=== PATIENT | male | born 1945 | race Caucasian/White ===

== ENCOUNTER 2017-03-15 12:30 | Inpatient (IN) ==
[2017-03-15] MEDS ORDERED: ENOXAPARIN 100 MG/ML SYRINGE SUBCUT ONE (12:59)
[2017-03-15] MEDS ORDERED: NITROGLYCERIN SL 0.4 MG TABLET SL ONE (13:00)
[2017-03-15] MEDS ORDERED: ASPIRIN 325 MG TABLET PO STA (13:00)
[2017-03-15] MEDS ORDERED: NITROGLYCERIN SL 0.4 MG TABLET SL PRN (13:00)
[2017-03-15] MEDS ORDERED: ASPIRIN 325 MG TABLET ONE (13:00)
[2017-03-15] MEDS ORDERED: ENOXAPARIN 100 MG/ML SYRINGE SUBCUT STA (13:00)
--- NOTE | 2017-03-15 13:00 | EKG Report ---
Stationary ECG Study [facility] ER Test Date: 03/15/2017 12:47:32 PM Pat Name: ADDISON DEL ANGEL Department: Room: Gender: M Polygraph Examiner: : 1945 Requested by: Lio Woods Order Number: [id number] Reading MD: BRITT COLEMAN Intervals [place] Rate: 98 P: 999 [place]: 158 QRS: -85 QRSD: 148 T: 69 QT: 372 QTc: 427 Interpretive Statements ELECTRONIC VENTRICULAR PACEMAKER NO FURTHER INTERPRETATION POSSIBLE NORMAL SINUS RHYTHM Electronically Signed On 03-15-17 18:00:58 CDT by BRITT COLEMAN [email or web address]
--- NOTE | 2017-03-15 13:43 | XRay Report ---
XR chest 1V portable Indication: Cough Comparison: 18 January 2016 Findings: The heart and mediastinum are stable in size and configuration. Pacemaker device is unchanged in position. The pulmonary vascularity is slightly increased with bilateral increased interstitial lung density. No other lung infiltrates, effusions, pneumothorax or other abnormality is demonstrated. Impression: Findings suggest mild cardiac decompensation. PROCEDURE INTERPRETED AT [facility] DEPARTMENT OF RADIOLOGY Final Report Signed by: Dr. Colin Wiseman
[2017-03-15 13:58] LABS: Hematocrit 21.7 VOL% (42.0-52.0); Mean Corpuscular HGB Conc 25.8 GM/DL (32-36); Mean Corpuscular Hemoglobin 17 PG (27-34); Mean Corpuscular Volume 64.8 FL (87-102); Mean Platelet Volume 11.7 FL (9.6-12.0); Platelet Count 250 T/CUMM (130-400); Red Blood Count 3.35 MC/CUMM (3.8-5.5); Red Cell Distribution Width 19.9 % (9.3-17.3); White Blood Count 7.7 T/CUMM (4-12)
[2017-03-15 13:59] LABS: Hemoglobin 5.6 GM/DL (14.0-18.0)
[2017-03-15 14:11] LABS: Alanine Aminotransferase 13 U/L (16-61); Albumin 3.6 G/DL (3.4-5.0); Alkaline Phosphatase 42 U/L (45-117); Aspartate Amino Transferase 11 U/L (0-37); Blood Urea Nitrogen 18 MG/DL (7-18); Calcium 8.5 MG/DL (8.5-10.1); Glucose 168 MG/DL (74-106); Magnesium 2.3 MG/DL (1.8-2.4); Osmolality,Calculated 284.4 MOS/KG (273-304); Potassium 4.3 MMOL/L (3.5-5.1); Sodium 140 MMOL/L (136-145); Total Protein 7.1 G/DL (6.4-8.3); Troponin I Only < 0.015 NG/ML (0.00-0.045)
[2017-03-15] MEDS ORDERED: SODIUM CHLORIDE 0.9% 250 ML IV PRN (14:21)
--- NOTE | 2017-03-15 14:28 | Emergency Department Note ---
Harvey Schwartz Brittany, am scribing for, and in the presence of, Lio Stafford MD 13:00. Rivera Schwartz Phillip K, MD, personally performed the services described in this documentation, ascribed by Cristal Gabriel in my presence, and it is both accurate and complete 428 . Arrival - Arrival Chief Complaint: Chest Pain Stated Complaint: chest pain,sent by clinic ED Nursing Triage Note: C/o midsternal chest pain radiating to left arm-onset 3 weeks ago. +SOB. Denies N/V. Patient was sent from [facility] for further evaluation. Mode of Arrival: Ambulatory Limitations: No Limitations Source: Patient, RN Notes Reviewed - History of Present Illness HPI Narrative: Patient is a 71 y/o white male presenting to the ED for further evaluation of chest pain. Patient reports that for the last 3-4 weeks he has been having bouts of mid-sternal chest pain that has worsened today. He describes this pain as a sharp, heaviness that radiates down the left arm that is worsened upon exertion. Patient notes having some associated shortness of breath and "clamminess," but denies having any nausea, vomiting, diaphoresis, neck pain, or back pain with this. He has also had a productive cough, yellow in color. Patient states that as of now pain has alleviated itself somewhat, but is still persistent. He is a patient of Dr. Spicer, Cardiology. Patient reports last Cardiac Catheterization was in the last 5 years and had stent placement with this. He is accompanied by his sister who reports that their both of their parents had a history of heart disease. Mother notes that in the past few weeks patient has seemed to have pallor. Patient reports that he does take an Aspirin/ day and other medications, but has not taken any of his medications today. He has no other complaint/pain in the ED at this time. Onset (ago): week(s) (3 weeks, worsening today) Consistency: constant Severity: moderate Severity scale (1-10): 6 Quality: sharp, other (heaviness) Allergies/Adverse Reactions: Allergies Allergy/AdvReac Type Severity Reaction Status Date / Time codeine Allergy Intermediate Nausea Verified 08/03/16 08:57 Home Medications: Home Medications Medication Instructions Recorded Confirmed Type Carvedilol [Coreg] 6.25 mg PO BID 01/20/16 03/15/17 History Lisinopril 20 mg PO DAILY 01/20/16 03/15/17 History Simvastatin 40.5 mg PO BEDTIME 01/20/16 03/15/17 History Aspirin [Aspirin EC] 81 mg PO DAILY 03/15/17 03/15/17 History Review of System - Review of System 12 point system: reviewed and no additional remarkable complaints except as stated - Review of System Constitutional: Absent: chills, diaphoresis, fever Eyes: Absent: vision change Head/Ears/Nose/Throat: Absent: nasal drainage, sore throat Respiratory: Present: respiratory distress Cardiovascular: Present: chest pain Gastrointestinal: Absent: abdominal pain, nausea, vomiting, diarrhea, constipation Genitourinary male: Absent: urgency, dysuria, frequency Musculoskeletal: Absent: arm pain, back pain, leg pain, neck pain Skin: Absent: rash Neurological: Absent: headache Psychiatric: Absent: anxiety, depression Hematological/Lymphatic: Absent: easy bleeding, easy bruising Medical,Surgical,& Family Hx - Medical History Cardio: History of: Hypertension, CT, Pacemaker, Cardiovascular Problems (DR SPICER) Neurology: History of: Seizures HEENT: History of: Eye Problem (GLASSES), Dental Problems (FULL SET) Rheumatology: History of;: Rheumatoid Arthritis Renal: History of: Renal (Kidney) Cancer Gastrointestinal: History of: GERD Musculoskeletal: 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) Other: History of: Cancer (RIGHT KIDNEY, SKIN CANCER) - Surgical History Cardiac Surgeries: Sugical HX of: Cardiac Catheterization (stent) - Social History Smoking Status: Former smoker Frequency of Alcohol Use: None Type of Drug Use: None Exam Vital Signs: Vital Signs Temperature 98.2 F 03/15/17 12:43 Pulse Rate 112 H 03/15/17 12:43 Respiratory Rate 22 03/15/17 12:43 Blood Pressure 136/61 03/15/17 12:43 O2 Sat by Pulse Oximetry 96 03/15/17 12:43 - General General appearance: alert, in no apparent distress - Head Head exam: Present: atraumatic, normocephalic, normal inspection - Eye Eye exam: Present: PERRL, EOMI. Absent: normal appearance (pale conjunctiva) - ENT ENT exam: Present: mucous membranes moist. Absent: normal oropharynx (pale mm) - Neck Neck exam: Present: normal inspection, full ROM, trachea midline - Chest Chest inspection: Present: symmetric chest wall rise, tenderness (anterior chest wall pain to palpation) - Respiratory Respiratory exam: Present: normal lung sounds bilaterally. Absent: rales, rhonchi, wheezes - Cardiovascular Cardiovascular exam: Present: normal rhythm, tachycardia, normal heart sounds. Absent: regular rate, murmur, rubs, gallop - Abdominal Exam Abdominal exam: Present: soft, tenderness (tender to palpation in the epigastric area), normal bowel sounds. Absent: distention - Rectal Exam Rectal exam: Present: heme (+) stool (Brown stool that is slightly heme positive.) - Extremities Exam Extremities exam: Present: full ROM, pedal edema (+1/+2 edema to the bilateral lower extremities) - Back Exam Back exam: Present: normal inspection - Neurological Exam Neurological exam: Present: alert, oriented X3, CN II-XII intact. Absent: motor sensory deficit - Psychiatric Psychiatric exam: Present: normal affect - Skin Skin exam: Present: warm, dry, intact, pallor. Absent: normal color Course Course Narrative: Patient admitted to the hospitalist for blood transfusion and cardiac evaluation. Results - Labs CBC & BMP: 03/15/17 13:27 03/15/17 13:27 Lab Results: I have reviewed the patients labs Labs: Laboratory Tests 03/15/17 03/15/17 13:27 13:27 WBC 7.7 RBC 3.35 L Hgb 5.6 L* Hct 21.7 L MCV 64.8 L MCH 17 L MCHC 25.8 L RDW 19.9 H Plt Count 250 MPV 11.7 Nucleated RBC % 0.0 Nucleated RBCs # 0.00 Sodium 140 Potassium 4.3 Chloride 103 Carbon Dioxide 28 Anion Gap 13.3 BUN 18 Creatinine 1.20 GFR Calculation 72 BUN/Creatinine Ratio 15.00 Glucose 168 H Calculated Osmolality 284.4 Calcium 8.5 Magnesium 2.3 Total Bilirubin 0.40 AST 11 ALT 13 L Alkaline Phosphatase 42 L Troponin I < 0.015 Total Protein 7.1 Albumin 3.6 Globulin 3.5 Albumin/Globulin Ratio 1.0 L Lipase 211.0 - EKG EKG results: interpreted by RENEE (pacemaker rhythm) - Diagnostic Findings Procedure: Chest x-ray: report reviewed by me (Findings suggest mild cardiac decompensation.) Disposition Clinical Impression: Chest pain, Unstable angina pectoris, Anemia, Heme positive stool Case discussed with: patient Disposition: Still a Patient Condition: Guarded
[2017-03-15] MEDS ORDERED: ONDANSETRON 4 MG/2 ML VIAL IV PRN (14:52)
[2017-03-15] MEDS ORDERED: DOCUSATE SODIUM 100 MG CAPSULE PO PRN (14:52)
--- NOTE | 2017-03-15 15:02 | Hospitalist History & Physical ---
<Zoya Bullokc - Last Filed: 03/15/17 15:44> Assessment and Plan (1) Chest pain Status: Acute Assessment and plan: Admit to telemetry. Cardiac monitoring. Serial troponins. Repeat EKGs. TSH ordered. BMP/CBC ordered. Prn nitro. Consult cardiology. Current Visit: Yes (2) Anemia Status: Acute Assessment and plan: Monitored bed for patient. Anemia profile ordered. Blood transfusion ordered. Labs ordered for am. Current Visit: Yes (3) Dyspnea Status: Acute Assessment and plan: Supplemental O2 ordered. Current Visit: Yes (4) Occult blood in stools Status: Acute Assessment and plan: H&H ordered. Consult GI. Current Visit: Yes (5) HTN (hypertension) Status: Chronic Assessment and plan: Pt. stable at present. Restart home medications. Current Visit: No History of Present Illness Chief complaint: chest pain History of present illness: Mr. Henson is a 71 year old white male patient that presented to the ED today with complaints of shortness of breath and chest pain. Pt. states that the chest pain and shortness of breath has been going on for at least a month but has progressively worsened. Pt. describes the pain as alternating from sharp to dull. He says its radiates down his arm. Pt. also reports that the shortness of breath happens in conjunction with the pain as well as with exertion. He stated just recently that he also had a dizzy spell where he "blacked out" and almost fell. Currently, pt denies any chest pain and explains that it is intermittent. He reports a productive cough with yellow sputum. Pt. has a past medical history of OH with stents, pacemaker, former smoker, kidney cancer, and hernia. He states that he had a cath done by Dr. Spicer "a little bit ago" and received the stents as a result. While in ED, patient was discovered to be slightly hem positive and anemic with a H&H of 04/21. Pt initially denied blood in stool but recanted and stated he noted blood 2 weeks ago but thought it was his hemorrhoids. Pt denies any nausea, vomiting, fever, chills, and abdominal pain. The pt. will be admitted to the hospitalist program. Home Medications Medication Instructions Recorded Confirmed Type Carvedilol [Coreg] 6.25 mg PO BID 01/20/16 03/15/17 History Lisinopril 20 mg PO DAILY 01/20/16 03/15/17 History Simvastatin 40.5 mg PO BEDTIME 01/20/16 03/15/17 History Aspirin [Aspirin EC] 81 mg PO DAILY 03/15/17 03/15/17 History Allergies Allergy/AdvReac Type Severity Reaction Status Date / Time codeine Allergy Intermediate Nausea Verified 08/03/16 08:57 Medical,Surgical,& Family Hx - Medical History Cardio: History of: Hypertension, OH, Pacemaker, Cardiovascular Problems (DR SPICER) Neurology: History of: Seizures HEENT: History of: Eye Problem (GLASSES), Dental Problems (FULL SET) Rheumatology: History of;: Rheumatoid Arthritis Renal: History of: Renal (Kidney) Cancer Gastrointestinal: History of: GERD Musculoskeletal: 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 Absent: headache(s) - EENT Eyes: Present: loss of vision Ears: Absent: decreased hearing Nose, mouth and throat: Absent: headache(s), sore throat - Cardiovascular Cardiovascular: Present: chest pain at rest, dyspnea - Respiratory Respiratory: Present: cough (productive) - Gastrointestinal Gastrointestinal: Absent: abdominal pain, nausea, vomiting - Genitourinary Genitourinary: Absent: difficulty urinating - Neurological Neurological: Present: paresthesias (intermittment bilateral hands). Absent: confusion - Psychiatric Psychiatric: Present: anxiety (with difficulty breathing) Exam - Constitutional Vitals: Period Temp Pulse Resp BP Sys/De Paz Pulse Ox Last 24 Hr 98.2 F 112 22 136/61 96 General appearance: no acute distress, over weight - Head Head exam: Present: normal inspection, normocephalic - Eye Eye exam: Present: EOMI. Absent: scleral icterus Pupils: Present: EUGENIA - Neck Neck exam: Present: normal inspection - Respiratory Respiratory exam: Present: clear to auscultation bilaterally. Absent: wheezes - Cardiovascular Cardiovascular exam: Present: regular rate and rhythm, other (patient has pacemaker) - GI/Abdominal GI/Abdominal exam: Present: normal bowel sounds, soft, other (pt has hernia). Absent: tenderness - Extremities Exam Extremities exam: Present: normal capillary refill, full ROM, edema (trace in le ) - Neurological Exam Neurological exam: Present: alert, oriented X3 - Psychiatric Psychiatric exam: Present: normal affect, normal mood, anxious - Skin Skin exam: Present: normal color, warm, dry Results - Labs CBC & BMP: 03/15/17 13:27 03/15/17 13:27 Lab Results: I have reviewed the past 24 hour labs <Radha Potter - Last Filed: 03/15/17 18:11> History of Present Illness History of present illness: Mr. Henson is a 71 year old male with a history of COPD, coronary artery disease status post stents and pacemaker placement who presented to the hospital with a chief complaint of shortness of breath and chest pain. According to the patient he is now noticed some intermittent chest tightness that lasts 25-45 minutes and can occur while he is at risk. He reports that it is associated with shortness of breath and nausea but denies any vomiting. He denies any diaphoresis. He does report lightheadedness and dizziness and he has noted progressive weakness over the last couple of weeks. He reports that the chest pain is seems to get worse when he takes a deep breath and is not associated with eating and is not positional. He reports that the pain is in the middle of his chest and it is mild to moderate in nature and radiates down his left arm. Patient reports that he has noted blood in his stools recently but thought this was related to his hemorrhoids. He does report some recent palpitations associated with lightheadedness and dizziness. He went to his primary care provider's office today for his 6 month checkup and according to his daughter looked pale so an EKG was done and a chest x-ray was obtained. He was sent to the emergency department for further evaluation and treatment. In the emergency room his hemoglobin was noted to be 5 and he has been ordered a blood transfusion by the ER. JADE panel EKG and chest x-ray were done. We were asked to admit for further evaluation and treatment. On review of systems patient reports that he has had a productive cough approximately 6 months to a year but he has not noticed any change in his quantity or quality in the sputum he produces. He is unsure of the color of the sputum and he denies any fever, chills, or changes in his weight. A 10 point review of systems was reviewed with the patient was otherwise unremarkable. Past medical history: Coronary artery disease status post stents, hypertension, chronic sinus disease, COPD, BPH, pacemaker placement, macular degeneration. Old records show history of kidney cancer, and abdominal hernia. PSH: Bilateral cataract extractions, fracture of the right hand repair, pacemaker placement, trauma to the left hand status post repair and amputation of 3 digits. Medications: Reviewed Allergies: Codeine causes hallucinations and nausea and vomiting Family history: Father had a stroke and diabetes, mother and sister had heart disease/OH and at an early age, brother had an OH, aortic problems, and a brain tumor; sister had breast cancer and thyroid problems SH: Patient had a 58-75-bnff-year smoking history and quit 2 years ago. He denies any alcohol or illicit drug use. He is and lives alone. He does not have home health Vitals: See ACCOUNTING ADMINISTRATIVE ASSISTANT note. Reviewed GEN: Awake alert and oriented 3 lying in hospital bed in no acute distress. Patient is morbidly obese HEENT exam reveals pupils are equal and reactive to light. Extraocular muscles are intact. Sclerae clear. Conjunctive are pink. Nares are patent. No discharge or epistaxis noted. Oropharynx is clear. No oral lesions or thrush. Neck is supple. No lymphadenopathy or thyromegaly appreciated. No JVD. No carotid bruits auscultated Cardiovascular exam: Regular rate and rhythm. Normal S1-S2. No obvious murmurs rubs or gallops Lungs: Diminished but clear to auscultation bilaterally with good aeration nonlabored breathing noted Abdomen: Obese, soft, nontender, nondistended, positive bowel sounds no organomegaly or masses appreciated though difficult to assess given his body habitus. Extremity exam is warm and well perfused no clubbing cyanosis or edema. Neuro exam is nonfocal Labs and investigative studies reviewed Assessment and plan: See ACCOUNTING ADMINISTRATIVE ASSISTANT note for details and I agree. I am concerned that patient may be having ischemic symptoms and so he will need a transfusion to have his hemoglobin at least 9. Agree with the transfusion ordered by ER. Serial H&H's. Cardiology consult. Check hemoglobin A1c, thyroid function, and fasting lipid panel. He may need his pacemaker interrogated as well. Will monitor on telemetry. Serial cardiac panels. GI consult to evaluate his anemia. Check an iron panel and an anemia profile. Discussed with patient and family and nurse practitioner and all questions answered. Exam - Constitutional Vitals: Period Temp Pulse Resp BP Sys/De Paz Pulse Ox Last 24 Hr 98.5 F 77-91 16-21 124-154/51-71 98-100 Results - Labs CBC & BMP: 03/15/17 17:24 03/15/17 13:27
[2017-03-15 17:46] LABS: Basophils % 0.5 % (0.0-0.8); Eosinophils # 0.3 10*3/uL (0.0-0.87); Eosinophils % 3.1 % (0.00-10.9); Hematocrit 21.9 VOL% (42.0-52.0); Immature Granulocytes % 0.9 %; Immature Granulocytes Absolute 0.08 #; Lymphocytes # 1.7 10*3/uL (1.4-4.0); Lymphocytes % 19.3 % (21.2-54.2); Mean Corpuscular HGB Conc 25.1 GM/DL (32-36); Mean Corpuscular Hemoglobin 17 PG (27-34); Mean Corpuscular Volume 66.4 FL (87-102); Monocytes # 0.6 10*3/uL (0.11-0.8); Monocytes % 6.5 % (1.7-12.7); Neutrophils # 6.1 10*3/uL (1.4-7.4); Neutrophils % 69.7 % (38.7-73.9); Platelet Count 227 T/CUMM (130-400); White Blood Count 8.7 T/CUMM (4-12)
[2017-03-15 17:55] LABS: Hemoglobin 5.5 GM/DL (14.0-18.0)
[2017-03-15 18:17] LABS: Folate > 24.0 NG/ML (5.4-24.0); Vitamin B12 386 PG/ML (211-911)
[2017-03-15 18:46] LABS: Sedimentation Rate-Westergren 16 MM/HR (0-20)
[2017-03-15 18:50] LABS: % Iron Saturation 3.3 % (18-50); Ferritin 1.8 ng/ml (26-388)
[2017-03-15 18:52] LABS: Eosinophils 2 % (0-10); Hypochromasia 2+; Lymphocytes 14 % (20-55); Platelet Estimate Normal; Polychromasia Slight; Segmented Neutrophils 81 % (50-85); Total Cells Counted 100
[2017-03-15 20:25] LABS: Apearance,Urine CLEAR (Clear); Bilirubin,Urine Negative (Negative); Blood, Urine Negative (Negative); Glucose,Urine (UA) Negative (Negative); Ketones,Urine Negative (Negative); Mucus,Urine Occasional /LPF (Occasional); Nitrite,Urine Negative (Negative); Protein,Urine Negative; RBC,Urine <1 /HPF (0-4); Urine Color Yellow (Yellow); Urine Specific Gravity 1.012 (1.001-1.035); Urine Urobilinogen < 2.0 EU/DL (0.2-1.0)
[2017-03-15] MEDS: SIMVASTATIN 40 MG TABLET PO SCH (20:42)
[2017-03-15] MEDS: PANTOPRAZOLE 40 MG TABLET PO SCH (20:42)
[2017-03-15] MEDS: CARVEDILOL 6.25 MG TABLET PO SCH (20:42)
[2017-03-15 21:14] LABS: Hematocrit 23.3 VOL% (42.0-52.0)
[2017-03-16 03:02] LABS: Hematocrit 25.9 VOL% (42.0-52.0)
[2017-03-16 05:24] LABS: Basophils # 0.1 10*3/uL (0.0-0.2); Basophils % 0.7 % (0.0-0.8); Eosinophils # 0.3 10*3/uL (0.0-0.87); Eosinophils % 3.6 % (0.00-10.9); Immature Granulocytes Absolute 0.09 #; Lymphocytes # 1.5 10*3/uL (1.4-4.0); Lymphocytes % 16.9 % (21.2-54.2); Mean Corpuscular HGB Conc 27.2 GM/DL (32-36); Mean Corpuscular Hemoglobin 19 PG (27-34); Mean Corpuscular Volume 69.6 FL (87-102); Monocytes # 0.5 10*3/uL (0.11-0.8); Monocytes % 5.9 % (1.7-12.7); Neutrophils # 6.4 10*3/uL (1.4-7.4); Neutrophils % 71.9 % (38.7-73.9); Platelet Count 239 T/CUMM (130-400); Red Blood Count 3.69 MC/CUMM (3.8-5.5); Red Cell Distribution Width 22.5 % (9.3-17.3); White Blood Count 8.8 T/CUMM (4-12)
[2017-03-16 05:31] LABS: Hematocrit 25.7 VOL% (42.0-52.0)
[2017-03-16 05:37] LABS: Calcium 7.9 MG/DL (8.5-10.1); Osmolality,Calculated 282.3 MOS/KG (273-304); Potassium 4.6 MMOL/L (3.5-5.1); Risk Ratio 3.25; Thyroid Stimulating Hormone 0.971 uIU/ml (0.358-3.74); VLDL CHOLESTEROL 20.8 MG/DL
[2017-03-16 05:56] LABS: Elliptocytes Few; Hypochromasia 1+; Spherocytes Few
[2017-03-16] MEDS: ACETAMINOPHEN 325 MG TABLET PO PRN ×2 (07:51→22:09)
[2017-03-16 08:03] LABS: Hematocrit 26.6 VOL% (42.0-52.0); Hemoglobin 7.1 GM/DL (14.0-18.0)
--- NOTE | 2017-03-16 08:56 | Gastrointestinal Consult Note ---
Assessment and Plan - Time spent with patient Time spent with patient: Greater than 30 minutes (1) Anemia Status: Acute Current Visit: Yes (2) Other specified counseling Status: Acute Current Visit: Yes History of Present Illness History of present illness: Mr. Henson is a 71 year old male Home Medications Medication Instructions Recorded Confirmed Type Carvedilol [Coreg] 6.25 mg PO BID 01/20/16 03/15/17 History Lisinopril 20 mg PO DAILY 01/20/16 03/15/17 History Simvastatin 40.5 mg PO BEDTIME 01/20/16 03/15/17 History Aspirin [Aspirin EC] 81 mg PO DAILY 03/15/17 03/15/17 History Allergies Allergy/AdvReac Type Severity Reaction Status Date / Time codeine Allergy Intermediate Nausea Verified 08/03/16 08:57 Medical,Surgical,& Family Hx - Medical History Cardio: History of: Hypertension, [place], Pacemaker, Cardiovascular Problems (DR SPICER) Neurology: History of: Seizures HEENT: History of: Eye Problem (GLASSES), Dental Problems (FULL SET) Rheumatology: History of;: Rheumatoid Arthritis Renal: History of: Renal (Kidney) Cancer Gastrointestinal: History of: GERD Musculoskeletal: 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) Other: History of: Cancer (RIGHT KIDNEY, SKIN CANCER) - Surgical History Cardiac Surgeries: Sugical HX of: Cardiac Catheterization (stent) - Family History Family History: Reports;: Family Cancer (brother, sister), Family Diabetes ( father, sister), Family Hypertension, Family Stroke (father) - Social History Smoking Status: Former smoker Frequency of Alcohol Use: None Type of Drug Use: None Exam - Constitutional Vitals: Period Temp Pulse Resp BP Sys/De Paz Pulse Ox Last 24 Hr 98.0 F-978.4 F 70-91 16-22 116-154/51-71 94-100 Results - Labs CBC & BMP: 03/16/17 07:51 03/16/17 04:19 Note Addendum: PLEASE NOTE -- automatic citation of patient information is unavoidable in this electronic note. I have made a reasonable effort to review the information cited , but it is not a part of my evaluation, impression, or recommendation unless specifically discussed in the dictated text that follows. As well, voice recognition software was used in the creation of this clinical note. Reasonable effort was made to identify and correct gross errors. Despite proofreading, errors in electronic components assembler may be present, including nonsense verbiage at times. If you encounter such an error, please contact me at [phone] for discussion and correction. -- Jayne Chief complaint: symptomatic anemia History of present illness: this is a new patient, a 71-year-old male seen by consultation for evaluation of symptomatic anemia. The patient is admitted to the telemetry floor under the care of Dr. Potter with a primary diagnosis of chest pain. The patient was admitted yesterday through the emergency department with primary complaint of shortness of breath and chest pain that has been progressive over the past month. This pain was described as worse with exertion. He also notes recent dizziness and a syncopal episode is reported. The patient has extensive coronary history with srents previously placed, about four or five years ago, and he is on a single antiplatelet agent, aspirin. Evaluation in the emergency department revealed hemoglobin less than 6 g/dL and the patient has been transfused overnight with appropriate response. The patient has not seen overt bleeding from any source. He has not previously had colonoscopy or upper endoscopy. He is unaware of any prior diagnosis of peptic ulcer. He does not take NSAID other than the aspirin. He is unaware of any prior history of liver disease. Patient denies fever, chills, night sweats, rigors, headache, neck pain, visual changes, redness of the eyes, dysphagia, odynophagia, difficulty chewing, weight loss, nausea, vomiting, regurgitation, hematemesis, diarrhea, hematochezia, melena, proctalgia, constipation, change in bowel pattern generally, dysuria, skin changes, temperature regulation issues, flushing, easy bleeding/bruising, musculoskeletal pain, mental status change, numbness/ weakness in the extremities, yellowing of the eyes/skin, cutaneous eruptions, allergies to food or drug, and other complaints in general. Review of systems: 12 point review of systems was negative except as documented above. Outpatient medications: carvedilol, lisinopril, simvastatin, aspirin Inpatient medications: Tylenol, aspirin, Coreg, Colace, lisinopril, Nitro stat, Zofran, Protonix, Zocor, normal saline infusion Past Medical History: hypertension, myocardial infarction, pacemaker, seizures, rheumatoid arthritis, renal cell carcinoma, gastroesophageal reflux disease, skin cancer Social history: former tobacco. Negative alcohol Family history: sister with gastric cancer at greater than 70 years of age Physical examination: Vital Signs: Current vital signs reviewed and documented above. General Appearance: sitting up on the bedside, accompanied by family, know apparent distress. Head: Normocephalic. Neck: Palpation of the neck revealed no abnormalities. Eyes: No scleral icterus. No scleral injection. No conjunctival pallor. Oral Cavity: Odor of breath was normal. No drooling was observed. Lips showed no abnormalities. Floor of the mouth showed no abnormalities. Pharynx: Oropharynx was normal. Lungs: Respiration rhythm and depth was normal. Cardiovascular: Heart rate and rhythm were normal. No murmurs were appreciated. Abdomen: abdomen was not distended. Abdominal palpation revealed no tenderness and no hepatosplenomegaly. Ascites was not discovered. Abdominal auscultation revealed positive bowel sounds. Musculoskeletal System: Musculoskeletal system was grossly normal. Neurological: level of consciousness was normal. Speech was normal. Skin: General appearance was normal. Color and pigmentation were normal. No skin lesions. Laboratory: hemoglobin 7.0, hematocrit 25.7, platelets 239, MCV 69 Radiology: reviewed Impressions: 1. Symptomatic anemia -- the differential diagnosis includes peptic ulcer, arteriovenous malformation, gastritis/esophagitis generally, gastric or colonic malignancy, and non-gastrointestinal bleeding. The patient will need both upper endoscopy and colonoscopy with timing dependent on clinical progress. As the patient does not appear to be actively bleeding, endoscopic evaluation is not urgently indicated and we will plan both exams for Saturday. In the interim, I recommend continued monitoring of blood counts with further transfusion as indicated. I also recommend aggressive volume management generally, continued proton pump inhibitor, and careful observation to exclude other bleeding sources. 2. Other specified counseling: The patient was seen for greater than 30 minutes. The patient was counseled for greater than 50% of this time regarding differential diagnosis, likely diagnosis, diagnostic and therapeutic alternatives, risks/benefits/alternatives of medications and procedures, and plan of care generally. The patient expressed understanding and wishes to proceed. Recommendations: -- aggressive volume management -- continued monitoring of blood counts with further transfusion as indicated -- continue proton pump inhibitor -- careful attention to alternative sources of blood loss -- upper endoscopy and colonoscopy with timing based on clinical progress, likely Saturday -- thank you for this consultation. We will follow with you.
[2017-03-16] MEDS ORDERED: PANTOPRAZOLE 40 MG TABLET PO SCH (09:00)
[2017-03-16] MEDS: PANTOPRAZOLE 40 MG TABLET PO SCH ×2 (09:09→22:10)
[2017-03-16] MEDS: ASPIRIN EC 81 MG TABLET PO SCH (09:09)
[2017-03-16] MEDS: CARVEDILOL 6.25 MG TABLET PO SCH ×2 (09:09→22:10)
[2017-03-16] MEDS: LISINOPRIL 20 MG TABLET PO SCH (09:09)
[2017-03-16] MEDS ORDERED: traMADol 50 MG TABLET PO PRN (09:52)
--- NOTE | 2017-03-16 10:08 | Cardiology Consult Note ---
Assessment and Plan (1) Anemia Status: Acute Assessment and plan: The patient has a profound anemia with a hemoglobin of 5.6 on admission. This is up to 7.0 after 2 units of blood. I suspect that most of the patient's symptoms including dyspnea, lightheadedness, and fatigue are related to the anemia. Workup and treatment is underway. Current Visit: Yes (2) Chest pain Status: Acute Assessment and plan: The patient has a long-standing, multi-year history of occasional fleeting and atypical chest discomforts. There has been no change in this pattern. He is not having any sort of typical anginal symptoms. His cardiac enzymes are negative. At this point I would not attempt any sort of cardiac workup. I would get his anemia worked up and treated. Once that is stable, if he is having any symptoms consistent with cardiac disease, this could be worked up as an outpatient. I'm going to drop off of his case at this time. I would recommend the patient follow-up with his primary hoop flaring machine operator helper Dr. Peter on a routine basis after discharge from the hospital. Current Visit: Yes (3) Hyperlipidemia Status: Acute Current Visit: Yes (4) Pacemaker Status: Chronic Assessment and plan: This appears to be functioning normally. Current Visit: No (5) Obesity Status: Acute Assessment and plan: Certainly the patient would benefit from diet and weight loss. Also, he may have undiagnosed sleep apnea. I will defer workup to the admitting team. Current Visit: Yes (6) Dyspnea Status: Acute Current Visit: Yes (7) HTN (hypertension) Status: Chronic Current Visit: No History of Present Illness - Consult Narrative History of present illness: Mr. Henson is a 71 year old male who has a history of multiple medical problems including hypertension, hyperlipidemia, coronary artery disease, and morbid obesity. He has seen Dr. Peter in the past to put a stent in. This is many years ago. He also received a pacemaker by Dr. Spicer several years ago. Patient does not appear very good historian. He tells me that he was due for refills of his medications and went into see his local family practice nurse practitioner. Apparently he "looked pale" and had blood work done. This blood work revealed profound anemia with a hemoglobin in the range of 5 and he was transferred to the emergency room for further workup and evaluation. He is received 2 units of blood since his arrival here which raised his hemoglobin to approximately 7. Somewhere in his historical discussion he mentioned having occasional chest pains, lightheadedness, and dyspnea. In talking with the patient he has had occasional sensations of palpitations for many years. These are generally brief and self-limited. There is been no change in this pattern. He has not had any of these recently. He does not have any typical exertional angina but has been feeling more fatigued and short of breath lately which is likely secondary to his profound anemia. He has not had any syncopal events but tells me that he "occasionally feels lightheaded". He also says that sometimes when he is in a recliner he will "fade off" which simply sounds like he falls asleep. With his body habitus, I would not be surprised if he has sleep apnea which has been undiagnosed. However, this symptom has been present for at least 5 years and occurs randomly and sporadically. He has not had any change in this pattern recently. Current Medications Acetaminophen (Tylenol Tab) 650 mg PO Q4H PRN PRN Reason: Fever, Headache, Mild Pain Last Admin: 03/16/17 07:51 Dose: 650 mg Aspirin () 81 mg PO DAILY REPLACED BY [facility] Last Admin: 03/16/17 09:09 Dose: 81 mg Carvedilol (Coreg) 6.25 mg PO BID REPLACED BY [facility] Last Admin: 03/16/17 09:09 Dose: 6.25 mg Docusate Sodium (Colace Cap) 100 mg PO BID PRN PRN Reason: Constipation Sodium Chloride (Ns) 250 mls @ 20 mls/hr IV .[id number] PRN PRN Reason: Blood Transfusion Stop: 03/16/17 14:22 Lisinopril (Prinivil) 20 mg PO DAILY REPLACED BY [facility] Last Admin: 03/16/17 09:09 Dose: 20 mg Nitroglycerin (Nitrostat) 0.4 mg SL Q5M PRN PRN Reason: Chest Pain Ondansetron HCl (Zofran Inj) 4 mg IV Q4H PRN PRN Reason: Nausea Pantoprazole Sodium (Protonix Tab) 40 mg PO BID REPLACED BY [facility] Last Admin: 03/16/17 09:09 Dose: 40 mg Simvastatin (Zocor) 40 mg PO BEDTIME REPLACED BY [facility] Last Admin: 03/15/17 20:42 Dose: 40 mg Tramadol HCl (Ultram) 25 mg PO Q6H PRN PRN Reason: Pain CC: Radha Potter MD - Home Medications and Allergies Home Medications: Home Medications Medication Instructions Recorded Confirmed Type Carvedilol [Coreg] 6.25 mg PO BID 01/20/16 03/15/17 History Lisinopril 20 mg PO DAILY 01/20/16 03/15/17 History Simvastatin 40.5 mg PO BEDTIME 01/20/16 03/15/17 History Aspirin [Aspirin EC] 81 mg PO DAILY 03/15/17 03/15/17 History Allergies/Adverse Reactions: Allergies Allergy/AdvReac Type Severity Reaction Status Date / Time codeine Allergy Intermediate Nausea Verified 08/03/16 08:57 12 point system: reviewed and no additional remarkable complaints except as stated Medical,Surgical,& Family Hx - Medical History Cardio: History of: Hypertension, [place], Pacemaker, Cardiovascular Problems (DR SPICER) Neurology: History of: Seizures HEENT: History of: Eye Problem (GLASSES), Dental Problems (FULL SET) Rheumatology: History of;: Rheumatoid Arthritis Renal: History of: Renal (Kidney) Cancer Gastrointestinal: History of: GERD Musculoskeletal: 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) Other: History of: Cancer (RIGHT KIDNEY, SKIN CANCER) - Surgical History Cardiac Surgeries: Sugical HX of: Cardiac Catheterization (stent) - Family History Family History: Reports;: Family Cancer (brother, sister), Family Diabetes ( father, sister), Family Hypertension, Family Stroke (father) - Social History Smoking Status: Former smoker Frequency of Alcohol Use: None Type of Drug Use: None Physical Examination Vital Signs Temp Pulse Resp BP Pulse Ox 98.2 F 112 H 22 136/61 96 03/15/17 12:43 03/15/17 12:43 03/15/17 12:43 03/15/17 12:43 03/15/17 12:43 Other: General: Appears well developed, well nourished, obese, no apparent distress HEENT: Normocephalic, atraumatic Neck: Supple Neck, Midline Trachea, No Bruit, No JVD Cardiac: Reg Rate and Rhythm, 2/6 systolic Murmur, no gallop, no rub Lungs: Clear to auscultation, No Wheeze, Rales, Rhonchi Neuro: Cranial Nerve 2-12 Intact, Motor Function Grossly Intact Abdomen: Soft, Active Bowel Sounds, No Masses, No Pulsations/Bruits Skin: Normal color, no rash Extremities: No Clubbing, No Cyanosis, No Edema, Normal Upper Extr. Pulses Musculoskeletal: No acute abnormality noted Psychiatric: The patient does not appear to be anxious or depressed Result/EKG - Labs CBC & BMP: 03/16/17 07:51 03/16/17 04:19 Lab Results: I have reviewed the past 24 hour labs Labs: Laboratory Results - last 24 hr 03/15/17 03/15/17 03/15/17 15:30 15:31 17:24 WBC RBC Hgb Hct MCV MCH MCHC RDW Plt Count MPV Neut % (Auto) Lymph % (Auto) Pender % (Auto) Eos % (Auto) Baso % (Auto) Neut # (Auto) Lymph # (Auto) Pender # (Auto) Eos # (Auto) Baso # (Auto) Immature Gran % Nucleated RBC % Immature Gran # Nucleated RBCs # Hypochromasia Spherocytes Elliptocytes ESR Westergren Absolute Retic Percent Retic Retic Hgb Equivalent Sodium Potassium Chloride Carbon Dioxide Anion Gap BUN Creatinine GFR Calculation BUN/Creatinine Ratio Glucose Hemoglobin A1c Calculated Osmolality Calcium Iron TIBC % Saturation Ferritin Troponin I 0.021 Triglycerides Cholesterol LDL Cholesterol VLDL Cholesterol HDL Cholesterol Heart Disease Risk Ratio Vitamin B12 Folate TSH 3rd Generation Urine Color Urine Appearance Urine pH Ur Specific [place] Urine Protein Urine Glucose (UA) Urine Ketones Urine Blood Urine Nitrate Urine Bilirubin Urine Urobilinogen Urine Leukocytes Urine RBC Urine Mucus Ur Culture Indicated? Blood Type B POSITIVE B POSITIVE Antibody Screen Negative CHRISTELLE (IgG-AHG) CHRISTELLE, Polyspecific Crossmatch See Detail 03/15/17 03/15/17 03/15/17 17:24 17:24 17:24 WBC 8.7 RBC 3.30 L Hgb 5.5 L* Hct 21.9 L MCV 66.4 L MCH 17 L MCHC 25.1 L RDW 20.0 H Plt Count 227 MPV Neut % (Auto) 69.7 Lymph % (Auto) 19.3 L Pender % (Auto) 6.5 Eos % (Auto) 3.1 Baso % (Auto) 0.5 Neut # (Auto) 6.1 Lymph # (Auto) 1.7 Pender # (Auto) 0.6 Eos # (Auto) 0.3 Baso # (Auto) 0.0 Immature Gran % 0.9 Nucleated RBC % 0.0 Immature Gran # 0.08 Nucleated RBCs # 0.00 Hypochromasia Spherocytes Elliptocytes ESR Westergren 16 Absolute Retic 0.1 Percent Retic 2.6 H Retic Hgb Equivalent 14.3 L Sodium Potassium Chloride Carbon Dioxide Anion Gap BUN Creatinine GFR Calculation BUN/Creatinine Ratio Glucose Hemoglobin A1c Calculated Osmolality Calcium Iron TIBC % Saturation Ferritin 1.9 L Troponin I Triglycerides Cholesterol LDL Cholesterol VLDL Cholesterol HDL Cholesterol Heart Disease Risk Ratio Vitamin B12 386 Folate > 24.0 H TSH 3rd Generation Urine Color Urine Appearance Urine pH Ur Specific [place] Urine Protein Urine Glucose (UA) Urine Ketones Urine Blood Urine Nitrate Urine Bilirubin Urine Urobilinogen Urine Leukocytes Urine RBC Urine Mucus Ur Culture Indicated? Blood Type Antibody Screen CHRISTELLE (IgG-AHG) CHRISTELLE, Polyspecific Crossmatch 03/15/17 03/15/17 03/15/17 17:24 20:05 20:49 WBC RBC Hgb Hct MCV MCH MCHC RDW Plt Count MPV Neut % (Auto) Lymph % (Auto) Pender % (Auto) Eos % (Auto) Baso % (Auto) Neut # (Auto) Lymph # (Auto) Pender # (Auto) Eos # (Auto) Baso # (Auto) Immature Gran % Nucleated RBC % Immature Gran # Nucleated RBCs # Hypochromasia Spherocytes Elliptocytes ESR Westergren Absolute Retic Percent Retic Retic Hgb Equivalent Sodium Potassium Chloride Carbon Dioxide Anion Gap BUN Creatinine GFR Calculation BUN/Creatinine Ratio Glucose Hemoglobin A1c Calculated Osmolality Calcium Iron TIBC % Saturation Ferritin Troponin I 0.018 Triglycerides Cholesterol LDL Cholesterol VLDL Cholesterol HDL Cholesterol Heart Disease Risk Ratio Vitamin B12 Folate TSH 3rd Generation Urine Color Yellow Urine Appearance Clear Urine pH 6.0 Ur Specific [place] 1.012 Urine Protein Negative Urine Glucose (UA) Negative Urine Ketones Negative Urine Blood Negative Urine Nitrate Negative Urine Bilirubin Negative Urine Urobilinogen < 2.0 H Urine Leukocytes Negative Urine RBC <1 Urine Mucus Occasional Ur Culture Indicated? Not indicated Blood Type Antibody Screen CHRISTELLE (IgG-AHG) Negative CHRISTELLE, Polyspecific Negative Crossmatch 03/15/17 03/15/17 03/15/17 20:49 Unknown Unknown WBC RBC Hgb 6.0 L* Hct 23.3 L MCV MCH MCHC RDW Plt Count MPV Neut % (Auto) Lymph % (Auto) Pender % (Auto) Eos % (Auto) Baso % (Auto) Neut # (Auto) Lymph # (Auto) Pender # (Auto) Eos # (Auto) Baso # (Auto) Immature Gran % Nucleated RBC % Immature Gran # Nucleated RBCs # Hypochromasia Spherocytes Elliptocytes ESR Westergren Absolute Retic 0.1 Percent Retic 2.8 H Retic Hgb Equivalent 13.4 L Sodium Potassium Chloride Carbon Dioxide Anion Gap BUN Creatinine GFR Calculation BUN/Creatinine Ratio Glucose Hemoglobin A1c Calculated Osmolality Calcium Iron 16 L TIBC 488 H % Saturation 3.3 L Ferritin 1.8 L Troponin I Triglycerides Cholesterol LDL Cholesterol VLDL Cholesterol HDL Cholesterol Heart Disease Risk Ratio Vitamin B12 Folate TSH 3rd Generation Urine Color Urine Appearance Urine pH Ur Specific [place] Urine Protein Urine Glucose (UA) Urine Ketones Urine Blood Urine Nitrate Urine Bilirubin Urine Urobilinogen Urine Leukocytes Urine RBC Urine Mucus Ur Culture Indicated? Blood Type Antibody Screen CHRISTELLE (IgG-AHG) CHRISTELLE, Polyspecific Crossmatch 03/15/17 03/16/17 03/16/17 Unknown 03:01 04:19 WBC 8.8 RBC 3.69 L Hgb 7.0 L 7.0 L Hct 25.9 L 25.7 L MCV 69.6 L MCH 19 L MCHC 27.2 L RDW 22.5 H Plt Count 239 MPV 11.0 Neut % (Auto) 71.9 Lymph % (Auto) 16.9 L Pender % (Auto) 5.9 Eos % (Auto) 3.6 Baso % (Auto) 0.7 Neut # (Auto) 6.4 Lymph # (Auto) 1.5 Pender # (Auto) 0.5 Eos # (Auto) 0.3 Baso # (Auto) 0.1 Immature Gran % 1.0 Nucleated RBC % 0.0 Immature Gran # 0.09 Nucleated RBCs # 0.00 Hypochromasia 1+ Spherocytes Few Elliptocytes Few ESR Westergren Absolute Retic Percent Retic Retic Hgb Equivalent Sodium Potassium Chloride Carbon Dioxide Anion Gap BUN Creatinine GFR Calculation BUN/Creatinine Ratio Glucose Hemoglobin A1c < 4.2 L Calculated Osmolality Calcium Iron TIBC % Saturation Ferritin Troponin I Triglycerides Cholesterol LDL Cholesterol VLDL Cholesterol HDL Cholesterol Heart Disease Risk Ratio Vitamin B12 Folate TSH 3rd Generation Urine Color Urine Appearance Urine pH Ur Specific [place] Urine Protein Urine Glucose (UA) Urine Ketones Urine Blood Urine Nitrate Urine Bilirubin Urine Urobilinogen Urine Leukocytes Urine RBC Urine Mucus Ur Culture Indicated? Blood Type Antibody Screen CHRISTELLE (IgG-AHG) CHRISTELLE, Polyspecific Crossmatch 03/16/17 03/16/17 04:19 07:51 WBC RBC Hgb 7.1 L Hct 26.6 L MCV MCH MCHC RDW Plt Count MPV Neut % (Auto) Lymph % (Auto) Pender % (Auto) Eos % (Auto) Baso % (Auto) Neut # (Auto) Lymph # (Auto) Pender # (Auto) Eos # (Auto) Baso # (Auto) Immature Gran % Nucleated RBC % Immature Gran # Nucleated RBCs # Hypochromasia Spherocytes Elliptocytes ESR Westergren Absolute Retic Percent Retic Retic Hgb Equivalent Sodium 141 Potassium 4.6 Chloride 105 Carbon Dioxide 28 Anion Gap 12.6 BUN 17 Creatinine 1.20 GFR Calculation 75 BUN/Creatinine Ratio 14.00 Glucose 106 Hemoglobin A1c Calculated Osmolality 282.3 Calcium 7.9 L Iron TIBC % Saturation Ferritin Troponin I Triglycerides 104 Cholesterol 78 LDL Cholesterol 46.0 VLDL Cholesterol 20.8 HDL Cholesterol 24 L Heart Disease Risk Ratio 3.25 Vitamin B12 Folate TSH 3rd Generation 0.971 Urine Color Urine Appearance Urine pH Ur Specific [place] Urine Protein Urine Glucose (UA) Urine Ketones Urine Blood Urine Nitrate Urine Bilirubin Urine Urobilinogen Urine Leukocytes Urine RBC Urine Mucus Ur Culture Indicated? Blood Type Antibody Screen CHRISTELLE (IgG-AHG) CHRISTELLE, Polyspecific Crossmatch - EKG EKG results: interpreted by me
--- NOTE | 2017-03-16 11:58 | ECHO Report ---
Masoud Henson Exam Date: 03/16/2017 09:12 Referring Physician: Technologist: Roselyn Leung Age: 71 Ht (in): 65 Wt (lb): 229 Gender: M Exam Location: [facility] Echo Indications: pacemaker, ASCVD, HTN, Dyspnea, anemia, chest pain BP: 127 / 70 HR: 70 Rhythm: Pacemaker Technical Quality: IMPRESSIONS Left ventricular ejection fraction is estimated at 55-60 %. Mild concentric left ventricular hypertrophy with mild diastolic dysfunction. The left atrium is mildly enlarged. Trace mitral valve regurgitation. Mild tricuspid valve regurgitation. MEASUREMENTS (Male / Female) Normal Values 2D ECHO LV Diastolic Diameter PLAX 5.1 cm 4.2 - 5.9 / 3.9 - 5.3 cm LV Systolic Diameter PLAX 3.6 cm LV Fractional Shortening PLAX 30.5 % IVS Diastolic Thickness 1.5 cm 0.6 - 1.0 / 0.6 - 0.9 cm LVPW Diastolic Thickness 1.4 cm 0.6 - 1.0 / 0.6 - 0.9 cm RV Internal Dim ED PLAX 3.0 cm Aortic Root Diameter 2.9 cm LA Systolic Diameter LX 4.0 cm 3.0 - 4.0 / 2.7 - 3.8 cm DOPPLER TR Peak Velocity 324.0 cm/s TR Peak Gradient 42.0 mmHg FINDINGS Left Ventricle Normal left ventricular cavity size. Mild concentric left ventricular hypertrophy with mild diastolic dysfunction. Left ventricular ejection fraction is estimated at 55-60 %. Right Ventricle Mildly increased right ventricular size. Right Atrium Normal right atrial size. Left Atrium The left atrium is mildly enlarged. Mitral Valve Mild mitral valve sclerosis. Trace mitral valve regurgitation. Aortic Valve Mild aortic valve sclerosis. Tricuspid Valve Morphologically normal tricuspid valve. Mild tricuspid valve regurgitation. Tricuspid regurgitation velocities suggest a PAP of 42.0 mmHg + RAP. Pulmonic Valve Pulmonic valve not well visualized. Pericardium No pericardial effusion. Aorta Normal size aortic root and proximal ascending aorta. Berto Ron (Electronically Signed) Final Date: 16 March 2017 11:57
--- NOTE | 2017-03-16 14:05 | Hospitalist Progress Note ---
Hospitalist: Subjective Interval history: Patient reports he is continued to have some intermittent palpitations and chest pain today. Telemetry however did not report any significant dysrhythmias. He still reports he feels weak. No nausea or vomiting. No rectal bleeding reported. No hematemesis. Tolerating oral intake. Good urine output. Exam - Constitutional Vitals: Period Temp Pulse Resp BP Sys/De Paz Pulse Ox Last 24 Hr 98.0 F-978.4 F 66-91 16-22 116-154/51-71 94-100 Exam: GEN: Awake alert and oriented 3 lying in hospital bed in no acute distress. Patient is morbidly obese HEENT exam reveals pupils are equal and reactive to light. Extraocular muscles are intact. Sclerae clear. Conjunctive are pink. Nares are patent. No discharge or epistaxis noted. Oropharynx is clear. No oral lesions or thrush. Neck is supple. No lymphadenopathy or thyromegaly appreciated. No JVD. No carotid bruits auscultated Cardiovascular exam: Regular rate and rhythm. Normal S1-S2. No obvious murmurs rubs or gallops Lungs: Diminished but clear to auscultation bilaterally with good aeration nonlabored breathing noted Abdomen: Obese, soft, nontender, nondistended, positive bowel sounds no organomegaly or masses appreciated though difficult to assess given his body habitus. Extremity exam is warm and well perfused no clubbing cyanosis or edema. Neuro exam is nonfocal Results - Labs CBC & BMP: 03/16/17 14:50 03/16/17 04:19 - Impressions (1) Acute chest pain with palpitations Status: Acute Assessment and plan: Cardiology has seen the patient and no further workup recommended at this time. Cont telemetry for now. Serial troponins. TSH normal. Prn nitro. Current Visit: Yes (2) Acute blood loss Anemia on suspected chronic anemia/ symptomatic iron deficiency anemia suspect GI source Status: Acute Assessment and plan: Monitored bed for patient. Anemia profile ordered. 2U PRBCs 03/15. Will order an additional 2 units PRBCs. Labs ordered for am. Current Visit: Yes (3) Dyspnea Status: Acute Assessment and plan: Supplemental O2 ordered. Current Visit: Yes (4) Occult blood in stools Status: Acute Assessment and plan: H&H ordered. GI following and has plans for EGD/Colon 4/17. Current Visit: Yes (5) Essential hypertension Status: Chronic Assessment and plan: Pt. stable at present. Cont home medications. Current Visit: No D/W pt, nurse, and family and all questions answered. I will be away several days. One of my associates will follow in my absence.
[2017-03-16 15:13] LABS: Hematocrit 25.6 VOL% (42.0-52.0)
[2017-03-16 15:23] LABS: Hemoglobin 6.9 GM/DL (14.0-18.0)
[2017-03-16] MEDS: CYANOCOBALAMIN 500 MCG TABLET PO SCH (16:16)
[2017-03-16] MEDS: SIMVASTATIN 40 MG TABLET PO SCH (22:11)
[2017-03-17 05:04] LABS: Hemoglobin 8.9 GM/DL (14.0-18.0)
--- NOTE | 2017-03-17 06:48 | Gastrointestinal Progress Note ---
Assessment and Plan - Time spent with patient Time spent with patient: Less than 30 minutes (1) Anemia Status: Acute Current Visit: Yes (2) Other specified counseling Status: Acute Current Visit: Yes Exam (Progress Note) - Constitutional Vitals: Period Temp Pulse Resp BP Sys/De Paz Pulse Ox Last 24 Hr 97.6 F-99.6 F 66-79 16-22 98-174/46-78 93-97 Results - Labs CBC & BMP: 03/17/17 04:21 03/16/17 04:19 Note Addendum: DRAFT PLEASE NOTE -- automatic citation of patient information is unavoidable in this electronic note. I have made a reasonable effort to review the information cited , but it is not a part of my evaluation, impression, or recommendation unless specifically discussed in the dictated text that follows. As well, voice recognition software was used in the creation of this clinical note. Reasonable effort was made to identify and correct gross errors. Despite proofreading, errors in carpet journeyman may be present, including nonsense verbiage at times. If you encounter such an error, please contact me at [phone] for discussion and correction. -- Jayne Chief complaint: symptomatic anemia Subjective: The patient is a 71-year-old male seen for follow-up of symptomatic anemia. He reports no overt blood loss overnight. He received transfusion yesterday with adequate response. He is without complaint this morning but does say he wants to make sure we figure out what is wrong with him before he is discharged from the hospital. Review of systems: 12 point review of systems was negative except as documented above. Inpatient medications: Tylenol, aspirin, Coreg, Colace, lisinopril, Nitro stat, Zofran, Protonix, Zocor, normal saline infusion Physical examination: Vital Signs: Current vital signs reviewed and documented above. General Appearance: sitting up on the bedside, accompanied by family, know apparent distress. Head: Normocephalic. Neck: Palpation of the neck revealed no abnormalities. Eyes: No scleral icterus. No scleral injection. No conjunctival pallor. Oral Cavity: Odor of breath was normal. No drooling was observed. Lips showed no abnormalities. Floor of the mouth showed no abnormalities. Pharynx: Oropharynx was normal. Lungs: Respiration rhythm and depth was normal. Cardiovascular: Heart rate and rhythm were normal. No murmurs were appreciated. Abdomen: abdomen was not distended. Abdominal palpation revealed no tenderness and no hepatosplenomegaly. Ascites was not discovered. Abdominal auscultation revealed positive bowel sounds. Musculoskeletal System: Musculoskeletal system was grossly normal. Neurological: level of consciousness was normal. Speech was normal. Skin: General appearance was normal. Color and pigmentation were normal. No skin lesions. Laboratory: Hemoglobin 8.9, hematocrit 32.0 Radiology: reviewed Impressions: 1. Symptomatic anemia -- no overt bleeding overnight. We will plan upper and lower endoscopy tomorrow and follow-up as indicated. 2. Other specified counseling: The patient was seen for less than 30 minutes. The patient was counseled for greater than 50% of this time regarding differential diagnosis, likely diagnosis, diagnostic and therapeutic alternatives, risks/benefits/alternatives of medications and procedures, and plan of care generally. The patient expressed understanding and wishes to proceed. Recommendations: -- aggressive volume management -- continued monitoring of blood counts with further transfusion as indicated -- continue proton pump inhibitor -- careful attention to alternative sources of blood loss -- upper endoscopy and colonoscopy tomorrow -- thank you for this consultation. Dr. Prasad will assume GI care for this patient tomorrow.
[2017-03-17] MEDS: LISINOPRIL 20 MG TABLET PO SCH (08:22)
[2017-03-17] MEDS: CARVEDILOL 6.25 MG TABLET PO SCH ×2 (08:23→20:52)
[2017-03-17] MEDS: ASPIRIN EC 81 MG TABLET PO SCH (08:23)
[2017-03-17] MEDS: PANTOPRAZOLE 40 MG TABLET PO SCH ×2 (08:23→20:51)
[2017-03-17] MEDS: CYANOCOBALAMIN 500 MCG TABLET PO SCH (08:23)
--- NOTE | 2017-03-17 13:10 | Hospitalist Progress Note ---
Assessment and Plan - Time spent with patient Time spent with patient: Less than 30 minutes (1) HTN (hypertension) Status: Chronic Assessment and plan: (1) Acute chest pain with palpitations Status: Acute Assessment and plan: Cardiology has seen the patient and no further workup recommended at this time. Cont telemetry for now. TSH normal. Prn nitro. Current Visit: Yes (2) Acute blood loss Anemia on suspected chronic anemia/ symptomatic iron deficiency anemia suspect GI source Status: Acute Assessment and plan: Monitored bed for patient. Anemia profile ordered. 2U PRBCs 03/15, and again . Labs ordered for am. Current Visit: Yes (3) Dyspnea Status: Acute Assessment and plan: Supplemental O2 ordered. Current Visit: Yes (4) Occult blood in stools Status: Acute Assessment and plan: H&H ordered. GI following and has plans for EGD/Colon 03/18. Current Visit: Yes (5) Essential hypertension Status: Chronic Assessment and plan: Pt. stable at present. Cont home medications. Current Visit: No Current Visit: No (2) H/O heart artery stent Status: Chronic Current Visit: No (3) Occult blood in stools Status: Acute Current Visit: Yes Hospitalist: Subjective Interval history: pt for EGD qand Cscope in AM no issues overnight praying this AM with service clerk in good spirits Exam - Constitutional Vitals: Period Temp Pulse Resp BP Sys/De Paz Pulse Ox Last 24 Hr 97.6 F-99.5 F 63-79 16-20 98-174/46-78 93-98 General appearance: no acute distress, over weight - Head Head exam: Present: normal inspection, normocephalic, atraumatic - Eye Eye exam: Present: EOMI. Absent: conjunctival injection, nystagmus Pupils: Present: EUGENIA. Absent: normal accommodation - ENT ENT exam: Present: normal exam - Neck Neck exam: Present: normal inspection - Respiratory Respiratory exam: Present: clear to auscultation bilaterally. Absent: rhonchi, stridor, wheezes - Cardiovascular Cardiovascular exam: Present: regular rate and rhythm. Absent: irregular rhythm , JVD - GI/Abdominal GI/Abdominal exam: Present: normal bowel sounds, soft. Absent: psoas sign, tenderness, rebound - Extremities Exam Extremities exam: Present: normal inspection, normal capillary refill, full ROM - Back Exam Back exam: Present: normal inspection. Absent: CVA tenderness (L), CVA tenderness (R) - Neurological Exam Neurological exam: Present: alert, oriented X3, CN II-XII intact - Psychiatric Psychiatric exam: Present: normal affect, normal mood - Skin Skin exam: Present: normal color, warm, intact Results - Labs CBC & BMP: 03/17/17 04:21 03/16/17 04:19 Lab Results: I have reviewed the past 24 hour labs
[2017-03-17] MEDS ORDERED: POLYETHYLENE GLYCOL POWDER 255 GM BOTTLE PO ONE (18:00)
[2017-03-17] MEDS: SIMVASTATIN 40 MG TABLET PO SCH (20:52)
[2017-03-18 04:54] LABS: Calcium 8.5 MG/DL (8.5-10.1); Magnesium 2.7 MG/DL (1.8-2.4); Osmolality,Calculated 276.8 MOS/KG (273-304); Potassium 4.4 MMOL/L (3.5-5.1)
[2017-03-18 04:55] LABS: Basophils # 0.1 10*3/uL (0.0-0.2); Basophils % 0.5 % (0.0-0.8); Eosinophils # 0.4 10*3/uL (0.0-0.87); Hemoglobin 8.8 GM/DL (14.0-18.0); Immature Granulocytes % 0.6 %; Immature Granulocytes Absolute 0.06 #; Lymphocytes # 1.3 10*3/uL (1.4-4.0); Lymphocytes % 14.1 % (21.2-54.2); Mean Corpuscular HGB Conc 28.2 GM/DL (32-36); Mean Corpuscular Hemoglobin 20 PG (27-34); Mean Corpuscular Volume 72.2 FL (87-102); Mean Platelet Volume 11.5 FL (9.6-12.0); Monocytes # 0.6 10*3/uL (0.11-0.8); Monocytes % 5.9 % (1.7-12.7); Neutrophils % 74.9 % (38.7-73.9); Platelet Count 267 T/CUMM (130-400); Red Blood Count 4.32 MC/CUMM (3.8-5.5); Red Cell Distribution Width 24.2 % (9.3-17.3); White Blood Count 9.3 T/CUMM (4-12)
[2017-03-18 04:57] LABS: Hematocrit 30.5 VOL% (42.0-52.0)
[2017-03-18 05:07] LABS: Elliptocytes Few; Hypochromasia 1+; Platelet Estimate Adequate
[2017-03-18] MEDS ORDERED: MAGNESIUM CITRATE 300 ML BOTTLE PO ONE ×2 (06:00→20:41)
[2017-03-18 07:51] LABS: Hemoglobin A1 (Alkaline) 97.9 % (96.5-98.5); Hemoglobin A2 (Alkaline) 2.1 % (1.5-3.5)
[2017-03-18] MEDS: CYANOCOBALAMIN 500 MCG TABLET PO SCH (08:19)
[2017-03-18] MEDS: ASPIRIN EC 81 MG TABLET PO SCH (08:19)
[2017-03-18] MEDS: PANTOPRAZOLE 40 MG TABLET PO SCH ×2 (08:19→20:48)
[2017-03-18] MEDS: LISINOPRIL 20 MG TABLET PO SCH (08:22)
[2017-03-18] MEDS: CARVEDILOL 6.25 MG TABLET PO SCH ×2 (08:22→20:48)
--- NOTE | 2017-03-18 09:58 | Hospitalist Progress Note ---
Assessment and Plan (1) Anemia Status: Acute Assessment and plan: H/H stable at this time, 8.5/26.5 today; from 8.9/32.0 on yesterday. EGD/ Colonscopy scheduled for this PM. Current Visit: Yes Qualifiers: Anemia type: unspecified type Qualified Code(s): D64.9 - Anemia, unspecified (2) Occult blood in stools Status: Acute Assessment and plan: EGD/Colonscopy this PM. Current Visit: Yes (3) HTN (hypertension) Status: Chronic Assessment and plan: Blood pressures have been well controlled. Continue medications as previously ordered. Current Visit: No Hospitalist: Subjective Interval history: Patient seen and evaluated. No significant overnight issues reported per staff. EGD/Colonscopy scheduled for this AM. Exam - Constitutional Vitals: Period Temp Pulse Resp BP Sys/De Paz Pulse Ox Last 24 Hr 98 F-99.2 F 66-77 20-20 112-149/56-69 93-96 General appearance: no acute distress, over weight - Head Head exam: Present: normal inspection - Eye Eye exam: Present: EOMI. Absent: conjunctival injection Pupils: Present: EUGENIA, normal accommodation - ENT ENT exam: Present: normal exam - Neck Neck exam: Present: normal inspection. Absent: lymphadenopathy, meningismus, tenderness, thyromegaly - Respiratory Respiratory exam: Present: clear to auscultation bilaterally. Absent: rales, rhonchi, stridor, wheezes - Cardiovascular Cardiovascular exam: Present: regular rate and rhythm. Absent: diastolic murmur , gallop, JVD, rubs, systolic murmur - GI/Abdominal GI/Abdominal exam: Present: normal bowel sounds, soft - Extremities Exam Extremities exam: Present: normal inspection, full ROM - Back Exam Back exam: Present: normal inspection - Neurological Exam Neurological exam: Present: alert - Psychiatric Psychiatric exam: Present: normal affect, normal mood - Skin Skin exam: Present: normal color, warm, dry Results - Labs CBC & BMP: 03/18/17 03:58 03/18/17 03:58 Lab Results: I have reviewed the past 24 hour labs
[2017-03-18] MEDS ORDERED: LIDOCAINE 2% 5 ML VIAL ONE (13:26)
[2017-03-18] MEDS ORDERED: PROPOFOL 200 MG/20 ML VIAL IV ONE (13:26)
--- NOTE | 2017-03-18 13:27 | History and Physical Update ---
History and Physical Update - History and Physical H&P was reviewed, the patient examined and there: are no changes in the patients condition since last H&P was completed. - Physical Exam Mental Status: alert and oriented Heart: regular rate and rhythm Lung: clear to auscultation Abdomen: within normal limits Vitals: within normal limits
--- NOTE | 2017-03-18 13:29 | Operative Note ---
Date of procedure: 03/18/17 Pre-op diagnosis: Symptomatic anemia Procedure: Procedure: Esophagogastroduodenoscopy Brief clinical abstract: Patient is a 71-year-old male admitted with symptomatic anemia with hemoglobin 5.5. He has noted no gross GI bleeding and denies abdominal pain. Indication for procedure: Symptomatic anemia Endoscopic findings:[After informed consent was obtained, the patient was placed in the left lateral decubitus position. The gastroscope was inserted in the upper esophagus under direct vision with no resistance encountered. Esophageal mucosa appeared normal with squamocolumnar junction sharply demarcated at the diaphragmatic indentation. The endoscope was advanced in the stomach which was carefully examined including retroflexed view of the cardia and fundus. 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 I did not coagulate this. Remainder the stomach appeared normal. The pyloric channel, duodenal bulb, second and third portion of the duodenum appeared normal. The endoscope was withdrawn and patient appeared to tolerate the procedure well. 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 Continue to monitor with serial hemoglobins. Anesthesia: MAC Surgeon / Physician: Edouard Prasad Estimated blood loss: none Specimens: none sent Condition: stable Disposition: post procedure unit Results - Labs CBC & BMP: 03/18/17 03:58 03/18/17 03:58 Discharge Plan - Discharge Medications No Action Simvastatin 40.5 mg PO BEDTIME Lisinopril 20 mg PO DAILY Carvedilol [Coreg] 6.25 mg PO BID Aspirin [Aspirin EC] 81 mg PO DAILY - Follow Up or Referral - Forms/Instructions
--- NOTE | 2017-03-18 13:55 | Anesthesia ---
Anesthesia Post OP - Post Ansesthetic Evaluation Patient seen in post op: Yes Resp: within normal limits CV: within normal limits Mental: within normal limits Temp: within normal limits [id number]: within normal limits Nausea and Vomiting: within normal limits Pain: within normal limits
[2017-03-18] MEDS ORDERED: POLYETHYLENE GLYCOL POWDER 255 GM BOTTLE PO ONE (18:00)
[2017-03-18] MEDS: SIMVASTATIN 40 MG TABLET PO SCH (20:48)
[2017-03-19 05:20] LABS: Albumin 3.6 G/DL (3.4-5.0); Bilirubin,Total 0.7 MG/DL (0.2-1.0); Calcium 7.9 MG/DL (8.5-10.1); Magnesium 3.1 MG/DL (1.8-2.4); Osmolality,Calculated 277.5 MOS/KG (273-304); Phosphorous 3.4 MG/DL (2.5-4.9); Potassium 4.7 MMOL/L (3.5-5.1); Total Protein 6.7 G/DL (6.4-8.3)
[2017-03-19 05:34] LABS: Basophils # 0.1 10*3/uL (0.0-0.2); Basophils % 0.6 % (0.0-0.8); Eosinophils # 0.4 10*3/uL (0.0-0.87); Eosinophils % 3.9 % (0.00-10.9); Hematocrit 31.5 VOL% (42.0-52.0); Hemoglobin 8.9 GM/DL (14.0-18.0); Immature Granulocytes % 0.7 %; Immature Granulocytes Absolute 0.06 #; Lymphocytes # 1.3 10*3/uL (1.4-4.0); Lymphocytes % 14.9 % (21.2-54.2); Mean Corpuscular HGB Conc 28.3 GM/DL (32-36); Mean Corpuscular Hemoglobin 21 PG (27-34); Mean Corpuscular Volume 72.9 FL (87-102); Mean Platelet Volume 10.8 FL (9.6-12.0); Monocytes # 0.7 10*3/uL (0.11-0.8); Monocytes % 7.3 % (1.7-12.7); Neutrophils # 6.5 10*3/uL (1.4-7.4); Neutrophils % 72.6 % (38.7-73.9); Platelet Count 240 T/CUMM (130-400); Red Blood Count 4.32 MC/CUMM (3.8-5.5); Red Cell Distribution Width 24.2 % (9.3-17.3); White Blood Count 8.9 T/CUMM (4-12)
[2017-03-19 05:43] LABS: Hypochromasia 1+; Microcytosis 1+; Ovalocytes Slight
[2017-03-19 05:44] LABS: Platelet Estimate Normal
[2017-03-19] MEDS ORDERED: MAGNESIUM CITRATE 300 ML BOTTLE PO ONE (06:00)
[2017-03-19] MEDS: ASPIRIN EC 81 MG TABLET PO SCH (08:11)
[2017-03-19] MEDS: CYANOCOBALAMIN 500 MCG TABLET PO SCH (08:12)
[2017-03-19] MEDS: PANTOPRAZOLE 40 MG TABLET PO SCH (08:12)
[2017-03-19] MEDS: CARVEDILOL 6.25 MG TABLET PO SCH (08:27)
[2017-03-19] MEDS: LISINOPRIL 20 MG TABLET PO SCH (08:27)
--- NOTE | 2017-03-19 10:34 | Hospitalist Progress Note ---
Assessment and Plan - Time spent with patient Time spent with patient: Greater than 30 minutes (1) HTN (hypertension) Status: Chronic Assessment and plan: 71-year-old white male admitted with symptomatic anemia with hemoglobin of 5.5. He has received 2 units of blood and his hemoglobin has risen to 8.9 today and is stable. Dr. Prasad performed EGD yesterday and found a nonbleeding gastric vascular malformation that does not appear to be the source of bleeding. He recommended colonoscopy for today and to continue to monitor serial hemoglobins which are stable at this time. Patient is afebrile vital signs are stable, chest is clear and abdomen is nontender. Patient's blood pressures and blood sugars are under control. Will await results of colonoscopy. Patient will need follow-up with Dr. Peter, his outpatient field contact technician, upon discharge. Dr. Ron he saw him over the weekend and also recommended an evaluation by Dr. Shaffer for sleep apnea as well. This can be arranged as an outpatient basis on discharge. Further recommendations to follow per Dr. Zapata. Current Visit: No (2) Pacemaker Status: Chronic Current Visit: No (3) Chest pain Status: Acute Current Visit: Yes (4) Anemia Status: Acute Current Visit: Yes Qualifiers: Anemia type: unspecified type Qualified Code(s): D64.9 - Anemia, unspecified (5) Occult blood in stools Status: Acute Current Visit: Yes (6) Dyspnea Status: Acute Current Visit: Yes (7) Obesity Status: Acute Current Visit: Yes Hospitalist: Subjective Interval history: Patient sitting up on the edge of the bed getting his bath. He is awaiting colonoscopy by Dr. Prasad around lunch. Patient states he is still symptomatic despite getting 2 units of blood. He denies any chest pain or shortness of breath at this time. Exam - Constitutional Vitals: Period Temp Pulse Resp BP Sys/De Paz Pulse Ox Last 24 Hr 97.8 F-99.4 F 67-77 16-23 119-142/48-72 93-97 Exam: 71-year-old white male, no acute distress, alert and oriented Chest clear CV regular rate and rhythm Abdomen protuberant, good bowel sounds Extremities with no edema Results - Labs CBC & BMP: 03/19/17 04:28 03/19/17 04:28 Lab Results: I have reviewed the past 24 hour labs
[2017-03-19] MEDS ORDERED: LIDOCAINE 1% 5 ML VIAL ONE (13:20)
[2017-03-19] MEDS ORDERED: PROPOFOL 200 MG/20 ML VIAL IV ONE (13:20)
--- NOTE | 2017-03-19 14:14 | Operative Note ---
Date of procedure: 03/19/17 Pre-op diagnosis: Iron deficiency anemia Procedure: Procedure note: Colonoscopy with snare polypectomy and submucosal injection of saline for ascending polypectomy Physician: Dr. Sherman Prasad Brief clinical abstract: Patient is a 71-year-old male admitted with symptomatic iron deficiency anemia. He has been transfused with 4 units packed red blood cells. He had no localizing symptoms noted prior to admission. Upper endoscopy yesterday was negative. Endoscopic findings: After informed consent was obtained, the patient was placed in the left lateral decubitus position. Digital rectal exam was performed with no palpable abnormalities felt. Pediatric videocolonoscope was inserted into the rectum and advanced to the cecum without difficulty. Retroflex view within the cecum was performed back to the level of the hepatic flexure. The endoscope was advanced back to the cecum and on withdrawal colonic mucosa was carefully examined. Bowel prep was of good quality. Withdrawal time was over 10 minutes duration. There were 5 polyps in the ascending colon. 1 of these was approximately 1.5 cm diameter and sessile. It was injected with a total of 8 cc of sterile saline using a sclerotherapy needle to elevate it from the submucosa then removed with snare in a single piece. For other polyps ranging in size from 5-8 mm diameter were noted in the mid and distal ascending colon and placed in a specimen bottle together with the larger polyp. A total of 8 other polyps which vary in size from 5-8 mm were noted between the distal transverse and distal descending colon. These were each removed with snare using coagulation current also and obtained to place in a separate pathology specimen bottle. A few diverticuli were noted in the left colon. The endoscope was withdrawn in the rectum with retroflex view showing small internal hemorrhoids. The endoscope was removed and he appeared to tolerate the procedure well. Impression: #1 multiple colon polyps #2 left colon diverticulosis #3 internal hemorrhoids Plan: Follow-up pathology from above. Would probably repeat colonoscopy in 1 year given number of polyps. He needs small bowel evaluation at some point. He could be discharged from GI standpoint with outpatient small bowel series if he tolerates diet today. [place] [facility] [place]geon / Physician: Edouard Prasad Estimated blood loss: minimal Specimens: other (Multiple colon polyp) Condition: stable Disposition: post procedure unit Results - Labs CBC & BMP: 03/19/17 04:28 03/19/17 04:28 Discharge Plan - Discharge Medications No Action Simvastatin 40.5 mg PO BEDTIME Lisinopril 20 mg PO DAILY Carvedilol [Coreg] 6.25 mg PO BID Aspirin [Aspirin EC] 81 mg PO DAILY - Follow Up or Referral - Forms/Instructions Instructions: How to Use and Care for Your PEG Tube (DC), Aspiration Pneumonia (DC), Anemia (DC)
--- NOTE | 2017-03-19 14:21 | Anesthesia ---
Anesthesia Post OP - Post Ansesthetic Evaluation Patient seen in post op: Yes Resp: within normal limits CV: within normal limits Mental: within normal limits Temp: within normal limits [id number]: within normal limits Nausea and Vomiting: within normal limits Pain: within normal limits
[2017-03-19 14:50] VITALS: BP 130/61
--- NOTE | 2017-03-19 17:43 | Discharge Summary ---
Hospital Course - Hospital Course Hospital Course: Mr. Henson is a 71-year-old white male with history of VA with stents, pacemaker , former smoker, kidney cancer, and hernia presenting to the ED on 03/15/2017 with complaints of chest pain and shortness of breath. He states that it was going on for at least a month but had progressively worsened with radiation down to the arm. He was also having dizzy spells and blacking out where he almost fell. Patient was found to be heme positive and anemic with an H&H of 5/ 21. He stated he did note blood in his stools approximately 2 weeks ago but he thought it was his hemorrhoids. Patient received 2 units of blood and cardiology and gastroenterology were consulted. Dr. Ron from cardiology felt that most of his symptoms are related to his anemia. He did not recommend any sort of cardiac workup at this time. He recommended the patient follow-up with his primary conference producer Dr. Peter on a routine basis after discharge from the hospital. Dr. 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 Today, 03/19/2017 Dr. Prasad performed a colonoscopy with snare polypectomy and submucosal injection of saline for ascending polypectomy. He also found left colon diverticulosis and internal hemorrhoids as well. He recommended a repeat colonoscopy in one year and a small bowel evaluation as an outpatient in follow-up. Patient H&H is are stable at 8.9/31.5 with no further bleeding or complaints of chest pain. Patient is feeling better and stronger and moving around the room without difficulty. He will be started on iron supplementation and discussed with patient that he needs to drink plenty of water. He is tolerating his diet and will be discharged home today. As stated before he will need to follow-up with Dr. prasad for small bowel series in 3-[address] Peter as well. Complete discharge instructions were given to the patient and family members in the room. After discussion with Dr. Zapata, nursing, and the patient along with discharge paperwork, total discharge time took approximately 42 minutes. - Time spent with patient Time with patient DS: Greater than 30 minutes Diagnosis - Discharge Diagnosis (1) HTN (hypertension) Status: Chronic (2) Pacemaker Status: Chronic (3) Chest pain Status: Resolved (4) Anemia Status: Chronic (5) Occult blood in stools Status: Resolved (6) Dyspnea Status: Resolved (7) Obesity Status: Chronic Specialty Discharge - Follow Up or Referrals Follow up with: Elmira Chatman NP [REFERRING DOCTOR/PRACTITIONER] - (10 days after discharged with lab. H&H) Discharge Plan - Discharge Data Disposition: Disch To Home/Self Care Condition at Discharge: Stable Discharge Diet: heart healthy Activity: resume usual activities as tolerated Driving: no restrictions Contact your physician if you experience:: Nausea/Vomiting, Shortness of breath - Discharge Medications New Ferrous Sulfate 325 mg PO DAILY #30 tablet Docusate Sodium Cap [Colace Cap] 100 mg PO BID PRN #0 capsule PRN Reason: Constipation Continue Simvastatin 40.5 mg PO BEDTIME Lisinopril 20 mg PO DAILY Carvedilol [Coreg] 6.25 mg PO BID Aspirin [Aspirin EC] 81 mg PO DAILY - Follow Up or Referral Follow Up: Elmira Chatman NP [REFERRING DOCTOR/PRACTITIONER] - (10 days after discharged with lab. H&H) Edouard Prasad MD [Physician] - 1 Month (in need of small bowel series) Jostin Peter MD [Physician] - 2 Weeks - Forms/Instructions Instructions: Aspiration Pneumonia (DC), Anemia (DC) Exam - Constitutional Vitals: Period Temp Pulse Resp BP Sys/De Paz Pulse Ox Last 24 Hr 98.0 F-99.4 F 69-77 16-22 109-145/44-72 93-100 Exam: 71-year-old white male, no acute distress, alert and oriented Chest clear CV regular rate and rhythm Abdomen protuberant, nontender Extremities no edema Discharge Results Labs on day of discharge: Labs from last 24 hours 17 17 04:28 04:28 WBC 8.9 RBC 4.32 Hgb 8.9 L Hct 31.5 L MCV 72.9 L MCH 21 L MCHC 28.3 L RDW 24.2 H Plt Count 240 MPV 10.8 Neut % (Auto) 72.6 Lymph % (Auto) 14.9 L Knox % (Auto) 7.3 Eos % (Auto) 3.9 Baso % (Auto) 0.6 Neut # (Auto) 6.5 Lymph # (Auto) 1.3 L Knox # (Auto) 0.7 Eos # (Auto) 0.4 Baso # (Auto) 0.1 Immature Gran % 0.7 Nucleated RBC % 0.0 Immature Gran # 0.06 Nucleated RBCs # 0.00 Platelet Estimate Normal Hypochromasia 1+ Microcytosis 1+ Ovalocytes Slight Morphology Comment Sodium 139 Potassium 4.7 Chloride 104 Carbon Dioxide 28 Anion Gap 11.7 BUN 15 Creatinine 1.10 GFR Calculation 82 BUN/Creatinine Ratio 13.00 Glucose 107 H Calculated Osmolality 277.5 Calcium 7.9 L Phosphorus 3.4 Magnesium 3.1 H Total Bilirubin 0.70 AST 10 ALT 13 L Alkaline Phosphatase 45 Total Protein 6.7 Albumin 3.6 Globulin 3.1 Albumin/Globulin Ratio 1.1 DS: Provider Date of admission: 03/15/17 14:50 Primary care physician: . No PCP Attending physician on admission: Radha Potter MD Consults: 03/15/17 15:30 Consult to Physician [CONS] Routine Comment: Consulting Provider: Paul Walters 03/15/17 16:40 Consult to Pharmacy [CONS] Routine Reason for Pharmacy Consult: Adjust Meds Renal Funct 03/15/17 17:11 Consult to Physician [CONS] Routine Comment: Consulting Provider: Edouard Prasad Discharging clinician: SANDRA Feliciano Expected date of discharge: 03/19/17
--- NOTE | 2017-03-20 10:55 | Pathology Report from [facility] ---
ACCESSION # : [id number] PATIENT NAME : Masoud Henson ORDERING DR : DAMON VELA MD CLINICAL HX: GI Bleed POST-OP DX: #1 Right colon polyps x 5 #2 Descending colon polyps x 7 SPECIMEN INFO: #1 Right colon polyps x 5 #2 Descending colon polyps x 7 GROSS DESCRIPTION: #1 Received in formalin labeled with the patient's name "MASOUD HENSON and #1" consists of multiple fragments of white-pink tissue admixed with green yellow fragments of colonic debri measuring 1.4 x 1.0 cm. Also in the container is a polypoid pink-cardona mucosal polyp which is sectioned and submitted in cassette #1.#2 Received in formalin labeled with the patient's name "MASOUD HENSON and #2" consists of numerous pink-cardona tissue fragments collectively measuring 1.9 x 1.1 cm. Submitted in cassette #2. DIAGNOSIS FOR MASOUD HENSON: #1 RIGHT COLON POLYPS x 5: Tubular adenomas.#2 DESCENDING COLON POLYPS x 7: Tubular and tubulovillous adenomas. SERVICE DATE: 03/19/2017 REPORT DATE: 03/20/2017 PATHOLOGIST: Lakeisha Martinez
== END 2017-03-19 18:40 | disposition home or self-care (01) | DRG 812 ==
LOC: N.ED 12:30 → N.EDINP 14:50 → SUATTDRO 14:50 → N.TELES 16:38
PROVIDERS: ADMIT Pediatrics; ATTEND Internal Medicine
PROC: COLSIRP (2017-03-19 11:05)